=== PATIENT | female | born 1960 | race African-American/Black ===

== ENCOUNTER 2016-06-16 14:07 | Emergency (ER) | payer OTHER ==
--- NOTE | 2016-06-16 14:45 | ER Document Report ---
ED Medical Screen (RME) - General Stated Complaint: DIZZY Time seen by provider: 14:40 Notes: Patient states she has a history of vertigo and was at the gym 2 days ago, and missed stepped and fell hitting head on padded floor. Seen at the [facility] and diagnosed with concussion. No CT scan done, was given Zofran, which she has not been able to get filled. Has had continuous vomiting for 2 days. States she is unable to take any of her regular medications. Patient was rechecked at the [facility], and sent to the ER for evaluation. Patient states she feels weak because she has not been up to eat anything. I have greeted and performed a rapid initial assessment of this patient. A comprehensive ED assessment and evaluation of the patient, analysis of test results and completion of the medical decision making process will be conducted by additional ED providers. - Related Data Allergies/Adverse Reactions: meloxicam Allergy (Verified 06/16/16 14:45) Sulfa (Sulfonamide Antibiotics) Allergy (Verified 06/16/16 14:45) tramadol [From Ultram] Allergy (Verified 06/16/16 14:45) Physical Exam - Vital signs Vitals: Temp Pulse Resp BP Pulse Ox 97.5 F 58 L 14 149/67 H 100 06/16/16 14:14 06/16/16 14:14 06/16/16 14:14 06/16/16 14:14 06/16/16 14:14 - HEENT Head: Normocephalic Eyes: Normal Extraocular movements intact: Yes Pupils: PERRL Course - Vital Signs Vital signs: Temp Pulse Resp BP Pulse Ox 97.5 F 58 L 14 149/67 H 100 06/16/16 14:14 06/16/16 14:14 06/16/16 14:14 06/16/16 14:14 06/16/16 14:14
[2016-06-16] MEDS ORDERED: ONDANSETRON 4 MG TAB.RAPDIS PO ONE ×2 (14:46→17:34)
--- NOTE | 2016-06-16 17:25 | ER Document Report ---
ED General - General Chief Complaint: Vomiting Stated Complaint: DIZZY Mode of Arrival: Ambulatory Information source: Patient Notes: Patient presents to the emergency department with complaints of dizziness vomiting. Patient reports 2 days ago she fell at the gym. She went back of her head. She was evaluated by [facility] and prescribed Zofran but she was never able to pick it up. She reports she was vomiting all day yesterday. Denies fever or diarrhea. Fianc upper side reports patient is acting normal. Patient reports she has a history of migraines which causes vertigo. She reports she usually takes meclizine and it goes away. This time it has not gone away. Patient does not look toxic smiles easily and laughs. She reports no vomiting since prescribed Zofran at [facility]. TRAVEL OUTSIDE OF THE [place] IN LAST 30 DAYS: No - HPI Onset: Other - 2 days Quality of pain: Achy Pain Level: 2 Associated symptoms: Nausea, Vomiting Exacerbated by: Standing Relieved by: Denies Similar symptoms previously: Yes Recently seen / treated by doctor: Yes - Related Data Allergies/Adverse Reactions: meloxicam Allergy (Verified 06/16/16 14:45) Sulfa (Sulfonamide Antibiotics) Allergy (Verified 06/16/16 14:45) tramadol [From Ultram] Allergy (Verified 06/16/16 14:45) Past Medical History - General Information source: Patient Last Menstrual Period: 7 years menopause - Social History Smoking Status: Never Smoker Chew tobacco use (# tins/day): No Frequency of alcohol use: None Drug Abuse: None Family History: None Patient has suicidal ideation: No Patient has homicidal ideation: No - Past Medical History Cardiac Medical History: Reports: Hx Hypertension Pulmonary Medical History: Reports: Hx Asthma Neurological Medical History: Reports: Hx Migraine Endocrine Medical History: Reports: Hx Hypothyroidism, Other - hypoglycemia Renal/ Medical History: Denies: Hx Peritoneal Dialysis GI Medical History: Reports: Hx Gastroesophageal Reflux Disease Psychiatric Medical History: Reports: Hx Depression - anxiety Past Surgical History: Reports: Hx Orthopedic Surgery, Hx Tubal Ligation - Immunizations Hx Diphtheria, Pertussis, Tetanus Vaccination: No Review of Systems - Review of Systems Notes: Review HPI for review of systems., All other systems negative Physical Exam - Vital signs Vitals: Temp Pulse Resp BP Pulse Ox 97.5 F 58 L 14 149/67 H 100 06/16/16 14:14 06/16/16 14:14 06/16/16 14:14 06/16/16 14:14 06/16/16 14:14 - Notes Notes: PHYSICAL EXAMINATION: GENERAL: Well-appearing and in no acute distress HEAD: Atraumatic, normocephalic. EYES: Pupils equal round and reactive to light, extraocular movements intact, sclera anicteric, conjunctiva are normal. ENT: nares patent, Moist mucous membranes. NECK: Normal range of motion, supple without lymphadenopathy LUNGS: CTAB and equal. No wheezes rales or rhonchi. HEART: Regular rate and rhythm without murmurs ABDOMEN: Soft, no tenderness. No guarding, no rebound EXTREMITIES: Normal range of motion, no pitting edema. No cyanosis. NEUROLOGICAL: Cranial nerves grossly intact. Normal sensory/motor exams. PSYCH: Normal mood, normal affect. SKIN: Warm, Dry, normal turgor, no rashes or lesions noted Course - Re-evaluation Re-evalutation: 06/16/16 19:03 Issue ate crackers drink Juice no further vomiting reports she feels much better. Patient sent home with [employer]. She has meclizine at home. [facility] - Vital Signs Vital signs: Temp Pulse Resp BP Pulse Ox 97.5 F 58 L 14 149/67 H 100 06/16/16 14:14 06/16/16 14:14 06/16/16 14:14 06/16/16 14:14 06/16/16 14:14 Discharge - Discharge Clinical Impression: Elevated blood pressure reading, Vertigo Vomiting Qualifiers: Vomiting type: unspecified Vomiting Intractability: non-intractable Nausea presence: with nausea Qualified Code(s): R11.2 - Nausea with vomiting, unspecified Head injury Qualifiers: Encounter type: initial encounter Qualified Code(s): S09.90XA - Unspecified injury of head, initial encounter Condition: Stable Disposition: HOME, SELF-CARE Instructions: Antinausea Medication ([facility]), Vertigo ([facility]), Vomiting ([facility]), Head Injury Precautions ([facility]) Additional Instructions: *You have been evaluated for nausea/vomiting , vertigo, head injury, elevated blood pressure reading. *Take medication as prescribed *Ensure adequate fluid intake as discussed to prevent dehydration *Follow up with a primary care provider within one week *Return to ED for worsening condition, changes, needs Forms: Elevated Blood Pressure, Return to Work
[2016-06-16] MEDS ORDERED: MECLIZINE HCL 25 MG TABLET PO ONE (17:35)
[2016-06-16] MEDS ORDERED: ONDANSETRON ODT 4 MG TAB (6 TAB/DSPK) PO PRN (18:21)
[2016-06-16 19:04] VITALS: BP 149/53
== END 2016-06-16 18:59 | disposition home or self-care (01) ==
LOC: ER 14:07
DX: S09.90XA Unspecified injury of head, initial encounter (principal); W19.XXXA Unspecified fall, initial encounter; Y92.39 Other specified sports and athletic area as the place of occurrence of the external cause; R42 Dizziness and giddiness; R11.2 Nausea with vomiting, unspecified; I10 Essential (primary) hypertension; J45.909 Unspecified asthma, uncomplicated; Z86.69 Personal history of other diseases of the nervous system and sense organs; Z88.8 Allergy status to other drugs, medicaments and biological substances; Z88.2 Allergy status to sulfonamides; Z88.5 Allergy status to narcotic agent
CPT/HCPCS: 99284; 70450; S0119